=== PATIENT | female | born 1960 | race Caucasian/White ===

== ENCOUNTER 2021-12-29 08:54 | Outpatient (CLI) | payer OTHER, SELFPAY ==
[2021-12-29 09:17] LABS: Basophils Absolute Auto 0.02 K/mm3 (0.00-0.10); Basophils Percent Auto 0.2 % (0.0-1.0); Eosinophils Absolute Auto 0.12 K/mm3 (0.02-0.50); Eosinophils Percent Auto 1.4 % (1.0-6.0); Hemoglobin 14.2 g/dL (12.0-15.0); Immature Granulocyte Absolute 0.04 K/mm3 (0.00-0.00); Immature Granulocyte Percent A 0.5 % (0.0-0.0); Lymphocytes Absolute Auto 2.72 K/mm3 (1.10-4.50); Lymphocytes Percent Auto 32.7 % (18.0-42.0); Mean Corpuscular HGB Conc 33.8 g/dL (32.0-36.0); Mean Corpuscular Hemoglobin 30.9 pg (27.0-31.0); Mean Corpuscular Volume 91.3 fL (78.0-102.0); Mean Platelet Volume 8.8 fl (9.2-11.8); Monocytes Absolute Auto 0.59 K/mm3 (0.10-0.90); Monocytes Percent Auto 7.1 % (2.0-11.0); Neutrophils Absolute Auto 4.8 K/mm3 (1.7-7.2); Neutrophils Percent Auto 58.1 % (50.0-70.0); Platelet Count Result 336 K/mm3 (150-420); Red Cell Distribution Width 12.2 % (11.6-14.4); White Blood Count 8.3 K/mm3 (4.8-10.8)
[2021-12-29 10:39] LABS: Alanine Aminotransferase 23 U/L (14-59); Albumin Level 3.6 g/dL (3.4-5.0); Alkaline Phosphatase 138 U/L (46-116); Anion Gap 9 mmol/L (8-16); Aspartate Amino Transferase 20 U/L (15-37); Bilirubin,Total 0.5 mg/dL (0.00-1.00); Blood Urea Nitrogen 5 mg/dL (7-18); Calcium 9.3 mg/dL (8.5-10.1); Carbon Dioxide 32 mmol/L (21-32); Chloride 101 mmol/L (98-108); Cholesterol 154 mg/dL (0-200); Estimated Glomerular Filt Rate > 60; Glucose 93 mg/dL (70-99); HDL Direct 47 mg/dL (40-60); LDL Cholesterol Calculated 63 mg/dL (<130); Magnesium 1.9 mg/dL (1.8-2.4); Osmolality Calculated 291 mOsm/kg (285-295); Potassium 4.3 mmol/L (3.5-5.1); Sodium 142 mmol/L (136-145); Total Protein 6.5 g/dL (6.4-8.2); Triglycerides 221 mg/dL (0-150); Vitamin B12 2000 pg/mL (193-986)
[2021-12-29 10:40] LABS: Folic Acid > 20.0 ng/mL (8.6->20)
== END 2021-12-29 08:55 | disposition home or self-care (01) ==
LOC: CHSLAB 08:59
PROVIDERS: PCP Nurse Practitioner Family; Visit Provider Nurse Practitioner Family
DX: E78.00 Pure hypercholesterolemia, unspecified (principal); I10 Essential (primary) hypertension; E83.42 Hypomagnesemia; E53.8 Deficiency of other specified B group vitamins
CPT/HCPCS: 36415; 80053; 80061; 82607; 82746; 83735; 85025

== ENCOUNTER 2022-03-22 01:18 | Day surgery (SDC) | payer OTHER, SELFPAY ==
[2022-03-10 13:40] VITALS: BMI 26.6
[2022-03-22 09:22] VITALS: BP 133/86; PULSE 86; RESP 20; TEMP 36.2; O2SAT 100
[2022-03-22] MEDS: LACTATED RINGERS 1,000 ML 150 ML IV CONT (09:33)
--- NOTE | 2022-03-22 09:43 | WPDANESEPPF ---
Anes - Initial Pre Proc Eval Procedure: Operation Date: 03/22/22 10:15 Proposed Procedures p Screening Colonoscopy - Otto Cancino MD Date/Time: 03/22/22 09:43 Surgeon: Otto Cancino MD Pre Op Diagnosis: neoplasm screening Patient Data Age: 61 Gender: F Height: 1.68 m Weight: 72 kg Last Vital Signs Temp 97.1 F L 03/22/22 09:22 Pulse 86 03/22/22 09:22 Resp 20 03/22/22 09:22 BP 133/86 03/22/22 09:22 Pulse Ox 100 03/22/22 09:22 Allergies Allergy/AdvReac Type Severity Reaction Status Date / Time No Known Allergies Allergy Verified 03/22/22 09:20 Home Medications Medication Instructions Recorded Confirmed Type atorvastatin 20 mg tablet 20 mg PO DAILY tablet 12/28/21 03/10/22 History hydrochlorothiazide 12.5 mg tablet 12.5 mg PO DAILY #30 tablet 12/28/21 03/22/22 Rx albuterol sulfate 90 mcg/actuation 1 inh INHALATION Q4H PRN #8.5 g 03/16/22 Rx aerosol inhaler budesonide 160 mcg-glycopyr 9 2 inh INHALATION BID #10.7 g 03/16/22 Rx mcg-formot 4.8 mcg/actuation HFA inhaler Patient hx anesthesia problems: none Family hx anesthesia problems: none Results Review: All pre-operative results and documents have been reviewed as part of the pre-operative evaluation. [facility] Past Medical History Medical History (Updated 03/19/22 @ 15:56 by Emmanuel Jennings DO) Chronic GERD (04/03/18) COPD (chronic obstructive pulmonary disease) (11/02/18) Hypercholesteremia Hypertension Surgical History Surgical History (Updated 12/28/21 @ 15:10 by Flor García NP) History of cataract surgery History of dilation and curettage History of intravascular stent placement History of tonsillectomy Previous back surgery Fusion at cervical Family History Family History Other Family history of malignant neoplasm Social History Social History (Updated 12/28/21 @ 14:58 by Tracy Walters MA) Smoking packs per day: 1 Smoking cigarettes per day: 20.0 Years smoked: 44 Smoking pack-years: 44.00 Smoking status: Current every day smoker Tobacco type: cigarettes Alcohol intake: current Alcohol use details: socially Substance use: never Substance use type: does not use Living arrangements: alone Gender identity (if verbalized by the patient): Female Spiritual care concerns: No Anes - Eval Final PreProcedure Day of Procedure 03/22/22 09:43 Patient weight: overweight Heart: regular rate and rhythm Lungs: clear to auscultation Airway: Mallampati scale class II Neurological: alert and oriented Last oral intake: >/= 8 hours ASA classification: III Emergent: no Anesthetic plan: proceed Anesthesia type and monitoring: general and standard monitoring Results Review: All pre-operative results and documents have been reviewed as part of the pre-operative evaluation. Informed Consent: The patient's anesthetic plan and its attendant risks and benefits were discussed with the patient/family/POA. Questions were solicited and answers provided to the satisfaction of the patient/family/POA.
--- NOTE | 2022-03-22 09:55 | PM.HPGS ---
History of Present Illness History of Present Illness Consent: Risks, benefits, and alternatives have been discussed and questions answered. Patient agrees to proceed with procedure. Chief complaint: neoplasm screening Narrative: Tigist Martinez is a 61 year old female here for screening colonoscopy- last one about 20 years ago. Also chronic alternating constipation and diarrhea- not using meds in regular basis Review of Systems Constitutional: Constitutional: Denies headache(s) and Denies weakness Eyes: Eyes: Denies blurry vision ENT: Reports Normal hearing present, Denies headache(s) and Denies neck pain Cardiovascular: Cardiovascular: Denies chest pain and Denies dyspnea Respiratory: Respiratory: Denies dyspnea Gastrointestinal: Gastrointestinal: Reports no additional gastrointestinal complaints Genitourinary: Genitourinary: Denies dysuria Musculoskeletal: Musculoskeletal: Denies neck pain Integumentary/Breasts: Skin/Breast: Denies dry skin Neurologic: Reports Normal hearing present, Denies headache(s) and Denies weakness Psychiatric: Psychiatric: Denies anxiety Endocrine: Endocrine: Denies change in body appearance Hematologic/Lymphatic: Hematologic/Lymphatic: Denies easy bleeding Allergic/Immunologic: Allergic/Immunologic: Denies urticaria PMFSH Past Medical History Medical History (Updated 03/19/22 @ 15:56 by Emmanuel Jennings DO) Chronic GERD (04/03/18) COPD (chronic obstructive pulmonary disease) (11/02/18) Hypercholesteremia Hypertension Surgical History Surgical History (Updated 12/28/21 @ 15:10 by Flor García NP) History of cataract surgery History of dilation and curettage History of intravascular stent placement History of tonsillectomy Previous back surgery Fusion at cervical Family History Family History Other Family history of malignant neoplasm Social History Social History (Updated 12/28/21 @ 14:58 by Tracy Walters MA) Smoking packs per day: 1 Smoking cigarettes per day: 20.0 Years smoked: 44 Smoking pack-years: 44.00 Smoking status: Current every day smoker Tobacco type: cigarettes Alcohol intake: current Alcohol use details: socially Substance use: never Substance use type: does not use Living arrangements: alone Gender identity (if verbalized by the patient): Female Spiritual care concerns: No Meds Home Medications and Allergies Home Medications Medication Instructions Recorded Confirmed Type atorvastatin 20 mg tablet 20 mg PO DAILY tablet 12/28/21 03/10/22 History hydrochlorothiazide 12.5 mg tablet 12.5 mg PO DAILY #30 tablet 12/28/21 03/22/22 Rx albuterol sulfate 90 mcg/actuation 1 inh INHALATION Q4H PRN #8.5 g 03/16/22 Rx aerosol inhaler budesonide 160 mcg-glycopyr 9 2 inh INHALATION BID #10.7 g 03/16/22 Rx mcg-formot 4.8 mcg/actuation HFA inhaler Allergies Allergy/AdvReac Type Severity Reaction Status Date / Time No Known Allergies Allergy Verified 03/22/22 09:20 Vital Signs Vital Signs - 24 hr 03/22/22 09:22 Temperature 97.1 F L Pulse Rate 86 Respiratory Rate 20 Blood Pressure 133/86 Pulse Oximetry 100 Exam Const: General: comfortable and no acute distress HENMT: General nose exam: Normal nares present Eyes: General: appearance normal, both eyes and all related structures Neck: Neck: no JVD Resp: Auscultation: clear to auscultation bilaterally Cardio: Rate: regular rate Rhythm: regular rhythm GI: Inspection: non-distended GI Palp: Yes Soft to palpation Skin: General skin exam: normal color Neuro: General: gait normal Speech: normal speech Extrem: General: normal to inspection Psych: Mental Status: mental status grossly normal Assessment and Plan Assessment and plan (1) Screening for malignant neoplasm of colon: Code(s): Z12.11 - Encounter for screening for malignant neoplasm of
[2022-03-22 10:39] VITALS: BP 110/64; PULSE 71; RESP 22; O2SAT 100
[2022-03-22 10:49] VITALS: BP 129/76; PULSE 69; RESP 23; O2SAT 100
[2022-03-22 10:59] VITALS: BP 129/79; PULSE 77; RESP 22; O2SAT 100
== END 2022-03-22 11:07 | disposition home or self-care (01) ==
PROVIDERS: PCP Nurse Practitioner Family; Visit Provider Internal Medicine Gastroenterology
PROC: 0DJD8ZZ Inspection of Lower Intestinal Tract, Via Natural or Artificial Opening Endoscopic (ICD-10-PCS; CPT 45378; principal; 2022-03-22 10:15)
DX: Z12.11 Encounter for screening for malignant neoplasm of colon (principal); D12.0 Benign neoplasm of cecum; D12.2 Benign neoplasm of ascending colon; D12.3 Benign neoplasm of transverse colon; D12.4 Benign neoplasm of descending colon; K57.30 Diverticulosis of large intestine without perforation or abscess without bleeding; K64.8 Other hemorrhoids; I10 Essential (primary) hypertension; E78.00 Pure hypercholesterolemia, unspecified; J44.9 Chronic obstructive pulmonary disease, unspecified; K21.9 Gastro-esophageal reflux disease without esophagitis; Z79.51 Long term (current) use of inhaled steroids; F17.210 Nicotine dependence, cigarettes, uncomplicated
CPT/HCPCS: 45385; 45380; 45381; 88305; J2704; J7120